=== PATIENT | female | born 1955 | race African-American/Black ===

== ENCOUNTER → 2016-11-02 | Outpatient (CLI) | payer MEDICAID ==
[~2016-11-02] MED LIST: CYCL5TAB PO; ZOLP10TA5 PO
[2016-11-02 08:49] LABS: HEMOGLOBIN 14.5 g/dL (11.7-16.4)
[2016-11-02 09:01] LABS: ASPARTATE AMINO TRANSFERASE 17 U/L (15-37); BLOOD UREA NITROGEN 13 mg/dL (7-18)
== END | disposition home or self-care (01) ==
LOC: STAR 07:44 → EDBD 08:00
PROVIDERS: ATTEND Obstetrics & Gynecology Gynecologic Oncology
DX: Z01.811 Encounter for preprocedural respiratory examination (principal); N85.00 Endometrial hyperplasia, unspecified; R79.1 Abnormal coagulation profile
CPT/HCPCS: 36415; 71020; 80053; 85025; 85610; 85730; 93005

== ENCOUNTER 2016-11-06 09:57 | Day surgery (SDC) | payer MEDICAID ==
[~2016-11-06] VITALS: Ht 162.6 cm; Wt 75.5 kg
[2016-11-06] MEDS ORDERED: LACTATED RINGERS 1,000 ML IV SCH (10:17)
[2016-11-06 10:43] VITALS: BP 122/85
[2016-11-06] MEDS ORDERED: ASPI-496 PO (10:43)
[2016-11-06] MEDS ORDERED: OXYTOCIN 10 UNITS/ML, 1ML ONE (11:03)
[2016-11-06] MEDS ORDERED: MISOPROSTOL 200 MCG TABLET ONE (11:03)
[2016-11-06] MEDS ORDERED: METHYLERGONOVINE 0.2 MG/ML IM ONE (11:04)
[2016-11-06] MEDS ORDERED: BUPIVACAINE/PF-EPI 0.25% 1:200K ONE (11:04)
[2016-11-06] MEDS ORDERED: SILVER NITRATE STICK TP ONE (11:04)
[2016-11-06] MEDS ORDERED: MIDAZOLAM 1 MG/ML, 2ML ONE (11:39)
[2016-11-06] MEDS ORDERED: FENTANYL PF 250 MCG/5ML ONE (11:39)
[2016-11-06] MEDS ORDERED: KETOROLAC 30 MG/1 ML ONE (11:59)
[2016-11-06] MEDS ORDERED: DEXAMETHASONE 4 MG/ML, 5ML ONE (11:59)
[2016-11-06] MEDS ORDERED: ONDANSETRON 2MG/ML, 2ML ONE (11:59)
[2016-11-06] MEDS ORDERED: PROPOFOL 10 MG/ML, 20ML ONE (11:59)
[2016-11-06] MEDS ORDERED: PROMETHAZINE 25 MG/ML, 1ML IV PRN (12:00)
[2016-11-06] MEDS ORDERED: hydrALAzine 20 MG/ML, 1ML IV PRN (12:00)
[2016-11-06] MEDS ORDERED: MEPERIDINE/PF 25MG/0.5ML IVPush PRN (12:00)
[2016-11-06] MEDS ORDERED: FENTANYL PF 100 MCG/2ML IV PRN (12:00)
[2016-11-06] MEDS ORDERED: ONDANSETRON 2MG/ML, 2ML IVPush PRN (12:00)
[2016-11-06] MEDS ORDERED: METOCLOPRAMIDE 5 MG/ML, 2ML IV PRN (12:00)
[2016-11-06] MEDS ORDERED: MIDAZOLAM 1 MG/ML, 2ML IV PRN (12:00)
[2016-11-06] MEDS ORDERED: ACETAMINOPHEN 325 MG TABLET PO PRN (12:00)
[2016-11-06] MEDS ORDERED: OXYcodone 5 MG/5 ML ORAL.SOL UDC PO PRN (12:00)
[2016-11-06] MEDS ORDERED: HYDROmorphone 1 MG/ML, 1ML IV PRN (12:00)
[2016-11-06] MEDS ORDERED: LABETALOL 5MG/ML, 20ML IV PRN (12:00)
[2016-11-06] MEDS ORDERED: OXYcodone 5 MG/5 ML ORAL.SOL UDC ONE (12:48)
== END 2016-11-06 14:45 | disposition home or self-care (01) ==
LOC: EDBD → OUT 09:57
PROVIDERS: ATTEND Obstetrics & Gynecology Gynecologic Oncology
DX: N84.0 Polyp of corpus uteri (principal); I44.0 Atrioventricular block, first degree; Z86.718 Personal history of other venous thrombosis and embolism; N88.2 Stricture and stenosis of cervix uteri
CPT/HCPCS: 36415; 58120; 86850; 86900; 88305; J1100; J1885; J2250; J2405; J2704; J3010; J7120; J2210; J2590